=== PATIENT | male | born 1940 | race Caucasian/White ===

== ENCOUNTER 2018-01-31 18:12 | Inpatient (IN) | payer MEDICARE ==
[2018-01-31] MEDS ORDERED: ASPIRIN 81 MG PO STA (18:45)
[2018-01-31] MEDS ORDERED: NITROGLYCERIN OINT 1 INCH/GM PACKET TOPICAL STA (18:45)
--- NOTE | 2018-01-31 18:48 | ED ---
General Adult HPI - General Source: patient, family, RN notes reviewed Mode of arrival: wheelchair Limitations: no limitations <Chilo Cook - Last Filed: 01/31/18 18:46> <Paris Gibbs - Last Filed: 01/31/18 20:16> - General Chief complaint: Chest Pain Stated complaint: Chest Pain Time Seen by Provider: 01/31/18 18:38 - History of Present Illness Initial comments: Patient is a pleasant 77-year-old male presenting to the emergency Department with complaints of chest discomfort. Onset of symptoms was around 4 today. Patient did have discomfort that was somewhat severe. Discomfort described as an ache with some radiation up to the neck. Discomfort has improved and is mild at this time. No history of similar symptoms previously. Patient does have history of previous heart attack that he did not go to the hospital 4. No palpitations. No dyspnea. No nausea. No diaphoresis. (Chilo Cook) - Related Data Home Medications Medication Instructions Recorded Confirmed Aspirin 325 mg PO DAILY 11/01/13 11/04/13 Atorvastatin [Lipitor] 10 mg PO QAM 11/01/13 11/04/13 Folic Acid 800 mg PO DAILY 11/01/13 11/04/13 Ibuprofen [Motrin] 800 mg PO TID PRN 11/01/13 11/04/13 Lisinopril-Hctz 10-12.5 mg 1 each PO DAILY 11/01/13 11/04/13 [Zestoretic 10-12.5] amLODIPine [Norvasc] 5 mg PO DAILY 11/01/13 11/04/13 Allergies Allergy/AdvReac Type Severity Reaction Status Date / Time Penicillins Allergy Rash/Hives Verified 01/31/18 18:19 Review of Systems ROS Other: All systems not noted in ROS Statement are negative. Constitutional: Denies: fever Eyes: Denies: eye pain ENT: Denies: ear pain Respiratory: Denies: cough, dyspnea Cardiovascular: Reports: chest pain Endocrine: Denies: fatigue Gastrointestinal: Denies: abdominal pain Genitourinary: Denies: dysuria Musculoskeletal: Denies: back pain Skin: Denies: rash Neurological: Denies: weakness <Chilo Cook - Last Filed: 01/31/18 18:46> ROS Other: All systems not noted in ROS Statement are negative. <Paris Gibbs P - Last Filed: 01/31/18 20:16> ROS Statement: Those systems with pertinent positive or pertinent negative responses have been documented in the HPI. Past Medical History Past Medical History: COPD, CVA/TIA, Hyperlipidemia, Hypertension, Rheumatoid Arthritis (RA) Additional Past Medical History / Comment(s): SOB w/activity, having sleep study on 11-02-13 @[facility] for possible sleep apnea History of Any Multi-Drug Resistant Organisms: None Reported Past Surgical History: Orthopedic Surgery Additional Past Surgical History / Comment(s): carpal tunnel surg., eye surg. Past Anesthesia/Blood Transfusion Reactions: No Reported Reaction Past Psychological History: No Psychological Hx Reported Smoking Status: Former smoker Past Alcohol Use History: Occasional Past Drug Use History: None Reported <Chilo Cook Last Filed: 01/31/18 18:46> General Exam Limitations: no limitations General appearance: alert Head exam: Present: atraumatic Eye exam: Present: normal appearance, PERRL ENT exam: Present: normal oropharynx Neck exam: Present: normal inspection Respiratory exam: Present: normal lung sounds bilaterally. Absent: chest wall tenderness Cardiovascular Exam: Present: irregular rhythm Expanded Peripheral pulses: 2+: Radial (R), Radial (L), Dorsalis Pedis (R), Dorsalis Pedis (L) GI/Abdominal exam: Present: soft. Absent: tenderness Extremities exam: Present: normal inspection. Absent: pedal edema, calf tenderness Neurological exam: Present: alert Psychiatric exam: Present: normal affect, normal mood Skin exam: Present: normal color <Chilo Cook Last Filed: 01/31/18 18:46> Vital Signs 01/31/18 01/31/18 01/31/18 18:20 18:23 19:00 Temperature 98.2 F Pulse Rate 92 100 Respiratory 18 17 Rate Blood Pressure 168/105 154/105 O2 Sat by Pulse 94 L 98 Oximetry 01/31/18 01/31/18 01/31/18 19:42 19:51 19:54 Temperature Pulse Rate 98 102 H 99 Respiratory 20 18 20 Rate Blood Pressure 161/95 177/86 177/96 O2 Sat by Pulse 97 96 97 Oximetry EKG Findings - EKG Comments: EKG Findings:: A. fib with RVR, rate 110. QRS 90. QT 332. QTC 449. Normal axis. Normal QRS. Nonspecific ST-T. <Cook,Chilo - Last Filed: 01/31/18 18:46> Medical Decision Making <Chilo Cook - Last Filed: 01/31/18 18:46> - Lab Data Result diagrams: 01/31/18 18:37 01/31/18 18:37 <Paris Gibbs - Last Filed: 01/31/18 20:16> - Medical Decision Making She care was signed out to me by Dr. Cook, patient presented with chest pressure and new onset A. fib. Troponin was negative. Low-dose heparin was initiated. Patient's heart rate remained controlled on low dose of Cardizem. Results were discussed with the patient and patient was agreeable to plan for admission. Patient care was discussed with Dr. Selby who accepts admission with consult to Cardiology and Echo ordered. Orders placed. (Paris Gibbs) - Lab Data Lab Results 01/31/18 01/31/18 01/31/18 Range/Units 18:37 18:37 18:37 WBC 6.7 (3.8-10.6) k/uL RBC 4.63 (4.30-5.90) m/uL Hgb 14.8 (13.0-17.5) gm/dL Hct 45.4 (39.0-53.0) % MCV 97.9 (80.0-100.0) fL MCH 31.8 (25.0-35.0) pg MCHC 32.5 (31.0-37.0) g/dL RDW 14.2 (11.5-15.5) % Plt Count 196 (150-450) k/uL Neutrophils % 78 % Lymphocytes % 8 % Monocytes % 7 % Eosinophils % 4 % Basophils % 1 % Neutrophils # 5.2 (1.3-7.7) k/uL Lymphocytes # 0.6 L (1.0-4.8) k/uL Monocytes # 0.4 (0-1.0) k/uL Eosinophils # 0.2 (0-0.7) k/uL Basophils # 0.0 (0-0.2) k/uL PT (9.0-12.0) sec INR (<1.2) APTT (22.0-30.0) sec Sodium 140 (137-145) mmol/L Potassium 4.1 (3.5-5.1) mmol/L Chloride 108 H (98-107) mmol/L Carbon Dioxide 23 (22-30) mmol/L Anion Gap 9 mmol/L BUN 23 H (9-20) mg/dL Creatinine 0.89 (0.66-1.25) mg/dL Est GFR (CKD-EPI)AfAm >90 (>60 ml/min/1.73 sqM) Est GFR (CKD-EPI)NonAf 83 (>60 ml/min/1.73 sqM) Glucose 99 (74-99) mg/dL Calcium 9.1 (8.4-10.2) mg/dL Total Bilirubin 0.4 (0.2-1.3) mg/dL AST 39 (17-59) U/L ALT 36 (21-72) U/L Alkaline Phosphatase 64 (38-126) U/L Total Creatine Kinase 203 H (55-170) U/L CK-MB (CK-2) 2.7 H (0.0-2.4) ng/mL CK-MB (CK-2) Rel Index 1.3 Troponin I <0.012 (0.000-0.034) ng/mL Total Protein 7.3 (6.3-8.2) g/dL Albumin 4.0 (3.5-5.0) g/dL 01/31/18 Range/Units 18:37 WBC (3.8-10.6) k/uL RBC (4.30-5.90) m/uL Hgb (13.0-17.5) gm/dL Hct (39.0-53.0) % MCV (80.0-100.0) fL MCH (25.0-35.0) pg MCHC (31.0-37.0) g/dL RDW (11.5-15.5) % Plt Count (150-450) k/uL Neutrophils % % Lymphocytes % % Monocytes % % Eosinophils % % Basophils % % Neutrophils # (1.3-7.7) k/uL Lymphocytes # (1.0-4.8) k/uL Monocytes # (0-1.0) k/uL Eosinophils # (0-0.7) k/uL Basophils # (0-0.2) k/uL PT 10.3 (9.0-12.0) sec INR 1.1 (<1.2) APTT 21.5 L (22.0-30.0) sec Sodium (137-145) mmol/L Potassium (3.5-5.1) mmol/L Chloride (98-107) mmol/L Carbon Dioxide (22-30) mmol/L Anion Gap mmol/L BUN (9-20) mg/dL Creatinine (0.66-1.25) mg/dL Est GFR (CKD-EPI)AfAm (>60 ml/min/1.73 sqM) Est GFR (CKD-EPI)NonAf (>60 ml/min/1.73 sqM) Glucose (74-99) mg/dL Calcium (8.4-10.2) mg/dL Total Bilirubin (0.2-1.3) mg/dL AST (17-59) U/L ALT (21-72) U/L Alkaline Phosphatase (38-126) U/L Total Creatine Kinase (55-170) U/L CK-MB (CK-2) (0.0-2.4) ng/mL CK-MB (CK-2) Rel Index Troponin I (0.000-0.034) ng/mL Total Protein (6.3-8.2) g/dL Albumin (3.5-5.0) g/dL Disposition <Chilo Cook - Last Filed: 01/31/18 18:46> <Paris Gibbs - Last Filed: 01/31/18 20:16> Clinical Impression: Atrial fibrillation with RVR, Chest pain Disposition: ADMITTED IP TO THIS HOSP Condition: Stable Referrals: Paul Brower MD [Primary Care Provider] - 1-2 days
--- NOTE | 2018-01-31 18:54 | XR ---
EXAMINATION TYPE: XR chest 2V DATE OF EXAM: 01/31/2018 COMPARISON: 10/29/2013 HISTORY: Chest pain TECHNIQUE: Frontal and lateral views of the chest are obtained. FINDINGS: Heart and mediastinum are normal. Lungs are clear of consolidation. There is slight blunti ng of the right costophrenic angle. There is no heart failure. There is spurring in the thoracic spin e. There are small linear densities at the lung bases. IMPRESSION: Minimal scarring and subsegmental atelectasis at the lung bases. Minimal right pleural r eaction. No change.
[2018-01-31] MEDS: DILTIAZEM 50 MG in SODIUM CHLORIDE 0.9% 40 ML IV SCH (18:57)
[2018-01-31 18:58] LABS: Basophils % (A) 1 %; Eosinophils # (A) 0.2 k/uL (0-0.7); Eosinophils % (A) 4 %; HCT 45.4 % (39.0-53.0); HGB 14.8 gm/dL (13.0-17.5); Lymphocytes # (A) 0.6 k/uL (1.0-4.8); Lymphocytes % (A) 8 %; MCH 31.8 pg (25.0-35.0); MCHC 32.5 g/dL (31.0-37.0); MCV 97.9 fL (80.0-100.0); Mean Platelet Volume 6.7; Monocytes # (A) 0.4 k/uL (0-1.0); Monocytes % (A) 7 %; Neutrophils # (A) 5.2 k/uL (1.3-7.7); Neutrophils % (A) 78 %; Platelet Count 196 k/uL (150-450); RBC 4.63 m/uL (4.30-5.90); RDW 14.2 % (11.5-15.5); WBC 6.7 k/uL (3.8-10.6)
[2018-01-31 19:07] LABS: Creatine Kinase 203 U/L (55-170)
[2018-01-31 19:09] LABS: ALT 36 U/L (21-72); AST 39 U/L (17-59); Alkaline Phosphatase 64 U/L (38-126); Anion Gap 9 mmol/L; Blood Urea Nitrogen 23 mg/dL (9-20); Calcium 9.1 mg/dL (8.4-10.2); Carbon Dioxide 23 mmol/L (22-30); Chloride 108 mmol/L (98-107); Glucose 99 mg/dL (74-99); Potassium 4.1 mmol/L (3.5-5.1); Sodium 140 mmol/L (137-145); Total Bilirubin 0.4 mg/dL (0.2-1.3); Total Protein 7.3 g/dL (6.3-8.2)
[2018-01-31 19:19] LABS: Creatine Kinase MB 2.7 ng/mL (0.0-2.4); Troponin I <0.012 ng/mL (0.000-0.034)
[2018-01-31 19:44] LABS: INR 1.1 (<1.2)
[2018-01-31 19:45] LABS: Partial Thromboplastin Time 21.5 sec (22.0-30.0); Prothrombin Time 10.3 sec (9.0-12.0)
[2018-01-31] MEDS ORDERED: NITROGLYCERIN SL TABS 0.4 MG TAB SUBLINGUAL PRN (19:57)
[2018-01-31] MEDS ORDERED: HEPARIN SODIUM,PORCINE 5,000 UNIT/ML 1 ML VIAL IV ONE (19:59)
[2018-01-31] MEDS: HEPARIN SOD,PORK IN 0.45% NACL 25,000 UNIT in 0.45% NACL 1 500ML.BAG IV SCH (20:17)
[2018-01-31 22:10] VITALS: BMI 34.9
[2018-02-01 01:31] LABS: Basophils # (A) 0.1 k/uL (0-0.2); Basophils % (A) 1 %; Eosinophils # (A) 0.3 k/uL (0-0.7); Eosinophils % (A) 4 %; HGB 14.2 gm/dL (13.0-17.5); Lymphocytes # (A) 0.9 k/uL (1.0-4.8); Lymphocytes % (A) 15 %; MCH 32.6 pg (25.0-35.0); MCHC 33.1 g/dL (31.0-37.0); MCV 98.5 fL (80.0-100.0); Mean Platelet Volume 6.8; Monocytes # (A) 0.5 k/uL (0-1.0); Monocytes % (A) 8 %; Neutrophils % (A) 69 %; Platelet Count 174 k/uL (150-450); RBC 4.36 m/uL (4.30-5.90); WBC 5.8 k/uL (3.8-10.6)
[2018-02-01] MEDS: HEPARIN SODIUM,PORCINE 5,000 UNIT/ML 1 ML VIAL IV PRN (01:51)
[2018-02-01 01:53] LABS: Creatine Kinase MB 2.5 ng/mL (0.0-2.4); Troponin I 0.016 ng/mL (0.000-0.034)
[2018-02-01] MEDS: DILTIAZEM 50 MG in SODIUM CHLORIDE 0.9% 40 ML IV SCH (03:30)
[2018-02-01 07:52] LABS: Basophils % (A) 1 %; Eosinophils # (A) 0.3 k/uL (0-0.7); Eosinophils % (A) 4 %; HCT 43.7 % (39.0-53.0); HGB 14.2 gm/dL (13.0-17.5); Lymphocytes # (A) 0.9 k/uL (1.0-4.8); Lymphocytes % (A) 14 %; MCH 31.9 pg (25.0-35.0); MCHC 32.6 g/dL (31.0-37.0); Mean Platelet Volume 6.9; Monocytes # (A) 0.5 k/uL (0-1.0); Monocytes % (A) 8 %; Neutrophils # (A) 4.6 k/uL (1.3-7.7); Neutrophils % (A) 70 %; Platelet Count 176 k/uL (150-450); RBC 4.46 m/uL (4.30-5.90); WBC 6.6 k/uL (3.8-10.6)
[2018-02-01] MEDS: ATORVASTATIN 10 MG TAB PO SCH ×2 (07:53→07:56)
[2018-02-01 08:32] LABS: Creatine Kinase MB 3.4 ng/mL (0.0-2.4); Troponin I 0.023 ng/mL (0.000-0.034)
[2018-02-01 08:58] LABS: Cholesterol 193 mg/dL (<200); HDL Cholesterol 48 mg/dL (40-60); LDL Cholesterol,Calculated 132 mg/dL (0-99); Triglycerides 67 mg/dL (<150)
[2018-02-01] MEDS ORDERED: LISINOPRIL-HCTZ 10-12.5 MG 1 EACH TAB PO SCH (09:00)
[2018-02-01] MEDS ORDERED: amLODIPine 5 MG TAB PO SCH (09:00)
[2018-02-01] MEDS ORDERED: ASPIRIN 325 MG TAB PO SCH (09:00)
--- NOTE | 2018-02-01 10:29 | P.CRDCN ---
History of Present Illness History of present illness: This is Dr. León dictating a consult on this patient The patient was interviewed and examined by me IMPRESSION / ASSESSMENT: Patient admitted with chest discomfort lasting about an hour, continuous with normal cardiac enzymes that woke him up from sleep Newly diagnosed atrial fibrillation with RVR but denies palpitations or shortness of breath and resting comfortably in bed at this time supine History of hypertension on amlodipine and Zestoretic History of dyslipidemia on statins Normal TSH Past history of CVA and he did not seek medical attention at that time PLAN: Rate controlled atrial fibrillation with metoprolol. DC IV Cardizem today Continue IV heparin 2-D echo and Doppler study to assess cardiac structure and function Increase atorvastatin to 20 mg by mouth daily Lipid panel shows LDL of 1 32 mg/dL HPI 77 year old male patient who woke up in the middle of the night with chest discomfort. The pain radiated up into the neck and it lasted for about an hour or possibly more and hence he came to the hospital. Denied palpitations shortness of breath or any other associated symptoms 3 cardiac enzymes are normal but he was noted to be in atrial fibrillation which is a new diagnosis for him Several years back he had a stroke and last motor function in his upper extremity and this gradually resolved. He did not seek medical attention at that time Impression of Dr. Brower History of hypertension on Zestoretic 10/12.5 g by mouth daily as well as amlodipine 5 mg daily. Also takes atorvastatin 10 mg daily for dyslipidemia ROS: No fever chills or rigors, no cough, phlegm or expectoration, no nausea, vomiting or diarrhea, no hematuria, dysuria, no musculoskeletal complaints, no strokes or seizures, no skin lesions. EXAMINATION Rhythm is irregular. Breath sounds are normal no rhonchi no crackles Heart sounds S1 and S2 are irregular but normal no murmurs no gallops no rub Abdomen is soft nontender Extended is warm no edema Patient is lying supine in bed and looks comfortable Blood pressure 128/72 mmHg pulse rate in the 80s on IV Cardizem afebrile 96.7F normal respirations nonlabored REVIEW OF LABS, ECG Hemoglobin 14.2, alert lites normal, renal function normal, liver functions normal TSH 2.0 LDL 132, HDL 48, total cholesterol 193, triglycerides 67 Elevated CPK but normal troponins Twelve-lead ECG shows atrial fibrillation with RVR 110 beats a minute, newly diagnosed Past Medical History Past Medical History: COPD, CVA/TIA, Hyperlipidemia, Hypertension, Rheumatoid Arthritis (RA) Additional Past Medical History / Comment(s): SOB w/activity, having sleep study on 11-02-13 @ for possible sleep apnea History of Any Multi-Drug Resistant Organisms: None Reported Past Surgical History: Orthopedic Surgery Additional Past Surgical History / Comment(s): carpal tunnel surg., eye surg. Past Anesthesia/Blood Transfusion Reactions: No Reported Reaction Past Psychological History: No Psychological Hx Reported Smoking Status: Former smoker Past Alcohol Use History: Occasional Past Drug Use History: None Reported Medications and Allergies Home Medications Medication Instructions Recorded Confirmed Type Aspirin 325 mg PO DAILY 11/01/13 02/01/18 History Folic Acid 800 mg PO DAILY 11/01/13 02/01/18 History Ibuprofen [Motrin] 800 mg PO TID PRN 11/01/13 02/01/18 History amLODIPine [Norvasc] 5 mg PO DAILY 11/01/13 02/01/18 History Abatacept [Orencia] 125 mg SQ WEEKLY 02/01/18 02/01/18 History Latanoprost/Pf [Latanoprost 0.005% 1 drop BOTH EYES HS 02/01/18 02/01/18 History Eye Drop] Lutein 10 mg PO DAILY 02/01/18 02/01/18 History Methotrexate/Pf [Rasuvo 7.5 15 mg SQ WEEKLY 02/01/18 02/01/18 History mg/0.15 ml Autoinj] Allergies Allergy/AdvReac Type Severity Reaction Status Date / Time Penicillins Allergy Rash/Hives Verified 01/31/18 18:19 atorvastatin [From Lipitor] AdvReac Unknown Verified 02/01/18 09:19 Physical Exam Vitals: Vital Signs Temp Pulse Pulse Pulse Resp BP BP 02/01/18 08:00 18 02/01/18 07:58 96.7 F L 86 18 103/63 02/01/18 03:11 98.0 F 72 18 128/72 02/01/18 00:00 97.5 F L 96 18 132/68 01/31/18 20:31 97.1 F L 95 20 121/74 01/31/18 20:00 98 F 100 18 174/84 01/31/18 19:54 99 20 177/96 01/31/18 19:51 102 H 18 177/86 01/31/18 19:42 98 20 161/95 01/31/18 19:00 100 17 154/105 01/31/18 18:23 98.2 F 01/31/18 18:20 92 18 168/105 Pulse Ox 02/01/18 08:00 02/01/18 07:58 92 L 02/01/18 03:11 95 02/01/18 00:00 96 01/31/18 20:31 94 L 01/31/18 20:00 97 01/31/18 19:54 97 01/31/18 19:51 96 01/31/18 19:42 97 01/31/18 19:00 98 01/31/18 18:23 01/31/18 18:20 94 L Intake and Output 01/31/18 02/01/18 02/01/18 22:59 06:59 14:59 Intake Total 154.137 Balance 154.137 Intake: Intake, IV Titration 154.137 Amount Diltiazem 50 mg In Sodium 42.75 Chloride 0.9% 40 ml @ 5 MG/HR 5 mls/hr IV .Q10H [facility] Rx#:[id number] Heparin Sod,Pork in 0.45% 111.387 NaCl 25,000 unit In 0.45 % NaCl 1 500ml.bag @ 8.3 UNITS/KG/HR 19.95 mls/hr IV .Q24H [facility] Rx#: [id number] Other: Voiding Method Toilet Urinal # Voids 1 1 Weight 120.202 kg 116.1 kg Results 02/01/18 07:41 01/31/18 18:37 Cardiac Enzymes 01/31/18 01/31/18 02/01/18 Range/Units 18:37 18:37 01:15 AST 39 (17-59) U/L CK-MB (CK-2) 2.7 H 2.5 H (0.0-2.4) ng/mL Troponin I <0.012 0.016 (0.000-0.034) ng/mL 02/01/18 Range/Units 07:41 AST (17-59) U/L CK-MB (CK-2) 3.4 H (0.0-2.4) ng/mL Troponin I 0.023 (0.000-0.034) ng/mL Coagulation 01/31/18 02/01/18 02/01/18 Range/Units 18:37 01:15 07:41 PT 10.3 (9.0-12.0) sec APTT 21.5 L 31.8 H 60.0 H (22.0-30.0) sec Lipids 02/01/18 Range/Units 07:41 Triglycerides 67 (<150) mg/dL Cholesterol 193 (<200) mg/dL HDL Cholesterol 48 (40-60) mg/dL CBC 01/31/18 02/01/18 02/01/18 Range/Units 18:37 01:15 07:41 WBC 6.7 5.8 6.6 (3.8-10.6) k/uL RBC 4.63 4.36 4.46 (4.30-5.90) m/uL Hgb 14.8 14.2 14.2 (13.0-17.5) gm/dL Hct 45.4 43.0 43.7 (39.0-53.0) % Plt Count 196 174 176 (150-450) k/uL Comprehensive Metabolic Panel 01/31/18 Range/Units 18:37 Sodium 140 (137-145) mmol/L Potassium 4.1 (3.5-5.1) mmol/L Chloride 108 H (98-107) mmol/L Carbon Dioxide 23 (22-30) mmol/L BUN 23 H (9-20) mg/dL Creatinine 0.89 (0.66-1.25) mg/dL Glucose 99 (74-99) mg/dL Calcium 9.1 (8.4-10.2) mg/dL AST 39 (17-59) U/L ALT 36 (21-72) U/L Alkaline Phosphatase 64 (38-126) U/L Total Protein 7.3 (6.3-8.2) g/dL Albumin 4.0 (3.5-5.0) g/dL Current Medications Generic Name Dose Route Start Last Admin Trade Name Freq PRN Reason Stop Dose Admin Aspirin 81 mg 02/02/18 09:00 Aspirin PO DAILY [facility] Atorvastatin Calcium 20 mg 02/02/18 09:00 Lipitor PO QAM [facility] Lisinopril/HCTZ 1 each 02/01/18 09:00 02/01/18 07:53 Zestoretic 10-12.5 PO 1 each DAILY [facility] Administration Heparin Sodium (Porcine) 0 unit 01/31/18 19:59 02/01/18 01:51 Heparin IV 6,000 unit PER PROTOCOL PRN Administration Low PTT Protocol Heparin Sodium/Sodium Chloride 500 mls @ 19.95 mls/hr 01/31/18 20:00 01:52 25,000 unit/ Sodium Chloride IV 11.3 units/kg/hr .Q24H [facility] 27.16 mls/hr Titration Protocol 8.3 UNITS/KG/HR Metoprolol Tartrate 25 mg 02/01/18 10:30 Lopressor PO BID [facility] Nitroglycerin 0.4 mg 01/31/18 19:57 Nitrostat SUBLINGUAL Q5M PRN Chest Pain Intake and Output 01/31/18 02/01/18 02/01/18 22:59 06:59 14:59 Intake Total 154.137 Balance 154.137 Intake: Intake, IV Titration 154.137 Amount Diltiazem 50 mg In Sodium 42.75 Chloride 0.9% 40 ml @ 5 MG/HR 5 mls/hr IV .Q10H [facility] Rx#:[id number] Heparin Sod,Pork in 0.45% 111.387 NaCl 25,000 unit In 0.45 % NaCl 1 500ml.bag @ 8.3 UNITS/KG/HR 19.95 mls/hr IV .Q24H [facility] Rx#: [id number] Other: Voiding Method Toilet Urinal # Voids 1 1 Weight 120.202 kg 116.1 kg 02/01/18 07:41 01/31/18 18:37
[2018-02-01] MEDS: METOPROLOL TARTRATE 25 MG TAB PO SCH ×2 (10:56→21:02)
--- NOTE | 2018-02-01 12:41 | P.HPIM ---
History of Present Illness 77-year-old pleasant gentleman came in with compensative chest discomfort restarted yesterday across the chest radiating to the neck area. Constant moderate. Patient denied any fever chills diaphoresis patient's chest pain is nonpleuritic not associated with food. Patient is found to be in atrial fibrillation patient and dysuria cough runny nose abdominal pain diarrhea patient does not have any other signs or symptoms of sepsis at this time. Patient was initially on Cardizem which was switched to metoprolol patient had a cardiac cath that 6 years ago which was essentially within normal limits. Chest x-ray did not show any pulmonary edema. Chest pain is associated with shortness of breath, no palpitations Review of Systems REVIEW OF SYSTEMS: CONSTITUTIONAL: No fever, no malaise, no fatigue. HEENT: No recent visual problems or hearing problems. Denied any sore throat. CARDIOVASCULAR: no palpitations, no syncope. PULMONARY: no cough, no hemoptysis. GASTROINTESTINAL: No diarrhea, no nausea, no vomiting, no abdominal pain. Normoactive bowel sounds. NEUROLOGICAL: No headaches, no weakness, no numbness. HEMATOLOGICAL: Denies any bleeding or petechiae. GENITOURINARY: Denies any burning micturition, frequency, or urgency. MUSCULOSKELETAL/RHEUMATOLOGICAL: Denies any joint pain, swelling, or any muscle pain. ENDOCRINE: Denies any polyuria or polydipsia. The rest of the 14-point review of systems is negative. Past Medical History Past Medical History: COPD, CVA/TIA, Hyperlipidemia, Hypertension, Rheumatoid Arthritis (RA) Additional Past Medical History / Comment(s): SOB w/activity, having sleep study on 11-02-13 @[facility] for possible sleep apnea History of Any Multi-Drug Resistant Organisms: None Reported Past Surgical History: Orthopedic Surgery Additional Past Surgical History / Comment(s): carpal tunnel surg., eye surg. Past Anesthesia/Blood Transfusion Reactions: No Reported Reaction Past Psychological History: No Psychological Hx Reported Smoking Status: Former smoker Past Alcohol Use History: Occasional Past Drug Use History: None Reported Medications and Allergies Home Medications Medication Instructions Recorded Confirmed Type Aspirin 325 mg PO DAILY 11/01/13 02/01/18 History Folic Acid 800 mg PO DAILY 11/01/13 02/01/18 History Ibuprofen [Motrin] 800 mg PO TID PRN 11/01/13 02/01/18 History amLODIPine [Norvasc] 5 mg PO DAILY 11/01/13 02/01/18 History Latanoprost/Pf [Latanoprost 0.005% 1 drop BOTH EYES HS 02/01/18 02/01/18 History Eye Drop] Lutein 10 mg PO DAILY 02/01/18 02/01/18 History Methotrexate/Pf [Rasuvo 7.5 15 mg SQ WE 02/01/18 02/01/18 History mg/0.15 ml Autoinj] predniSONE 5 mg PO DAILY 02/01/18 02/01/18 History Allergies Allergy/AdvReac Type Severity Reaction Status Date / Time Penicillins Allergy Rash/Hives Verified 01/31/18 18:19 atorvastatin [From Lipitor] AdvReac Unknown Verified 02/01/18 09:19 Physical Exam Vitals: Vital Signs Temp Pulse Pulse Pulse Resp BP BP 02/01/18 11:56 18 02/01/18 11:03 94 F L 80 18 127/68 02/01/18 08:00 18 02/01/18 07:58 96.7 F L 86 18 103/63 02/01/18 03:11 98.0 F 72 18 128/72 02/01/18 00:00 97.5 F L 96 18 132/68 01/31/18 20:31 97.1 F L 95 20 121/74 01/31/18 20:00 98 F 100 18 174/84 01/31/18 19:54 99 20 177/96 01/31/18 19:51 102 H 18 177/86 01/31/18 19:42 98 20 161/95 01/31/18 19:00 100 17 154/105 01/31/18 18:23 98.2 F 01/31/18 18:20 92 18 168/105 Pulse Ox 02/01/18 11:56 02/01/18 11:03 93 L 02/01/18 08:00 02/01/18 07:58 92 L 02/01/18 03:11 95 02/01/18 00:00 96 01/31/18 20:31 94 L 01/31/18 20:00 97 01/31/18 19:54 97 01/31/18 19:51 96 01/31/18 19:42 97 01/31/18 19:00 98 01/31/18 18:23 01/31/18 18:20 94 L Intake and Output 01/31/18 02/01/18 02/01/18 22:59 06:59 14:59 Intake Total 154.137 Balance 154.137 Intake: Intake, IV Titration 154.137 Amount Diltiazem 50 mg In Sodium 42.75 Chloride 0.9% 40 ml @ 5 MG/HR 5 mls/hr IV .Q10H [facility] Rx#:[id number] Heparin Sod,Pork in 0.45% 111.387 NaCl 25,000 unit In 0.45 % NaCl 1 500ml.bag @ 8.3 UNITS/KG/HR 19.95 mls/hr IV .Q24H [facility] Rx#: [id number] Other: Voiding Method Toilet Urinal # Voids 1 1 Weight 120.202 kg 116.1 kg PHYSICAL EXAMINATION: GENERAL: The patient is alert and oriented x3, not in any acute distress. Well developed, well nourished. HEENT: Pupils are round and equally reacting to light. EOMI. No scleral icterus. No conjunctival pallor. Normocephalic, atraumatic. No pharyngeal erythema. No thyromegaly. CARDIOVASCULAR: S1 and S2 present. No murmurs, rubs, or gallops. PULMONARY: Chest is clear to auscultation, no wheezing or crackles. ABDOMEN: Soft, nontender, nondistended, normoactive bowel sounds. No palpable organomegaly. MUSCULOSKELETAL: No joint swelling or deformity. EXTREMITIES: No cyanosis, clubbing, or pedal edema. NEUROLOGICAL: Gross neurological examination did not reveal any focal deficits. SKIN: No rashes. Results CBC & Chem 7: 02/01/18 07:41 01/31/18 18:37 Labs: Abnormal Lab Results - Last 24 Hours (Table) 01/31/18 01/31/18 01/31/18 Range/Units 18:37 18:37 18:37 Lymphocytes # 0.6 L (1.0-4.8) k/uL APTT (22.0-30.0) sec Chloride 108 H (98-107) mmol/L BUN 23 H (9-20) mg/dL Total Creatine Kinase 203 H (55-170) U/L CK-MB (CK-2) 2.7 H (0.0-2.4) ng/mL LDL Cholesterol, Calc (0-99) mg/dL 01/31/18 02/01/18 02/01/18 Range/Units 18:37 01:15 01:15 Lymphocytes # 0.9 L (1.0-4.8) k/uL APTT 21.5 L (22.0-30.0) sec Chloride (98-107) mmol/L BUN (9-20) mg/dL Total Creatine Kinase (55-170) U/L CK-MB (CK-2) 2.5 H (0.0-2.4) ng/mL LDL Cholesterol, Calc (0-99) mg/dL 02/01/18 02/01/18 02/01/18 Range/Units 01:15 07:41 07:41 Lymphocytes # 0.9 L (1.0-4.8) k/uL APTT 31.8 H (22.0-30.0) sec Chloride (98-107) mmol/L BUN (9-20) mg/dL Total Creatine Kinase 177 H (55-170) U/L CK-MB (CK-2) 3.4 H (0.0-2.4) ng/mL LDL Cholesterol, Calc (0-99) mg/dL 02/01/18 02/01/18 Range/Units 07:41 07:41 Lymphocytes # (1.0-4.8) k/uL APTT 60.0 H (22.0-30.0) sec Chloride (98-107) mmol/L BUN (9-20) mg/dL Total Creatine Kinase (55-170) U/L CK-MB (CK-2) (0.0-2.4) ng/mL LDL Cholesterol, Calc 132 H (0-99) mg/dL Thrombosis Risk Factor Assmnt - Choose All That Apply Any of the Below Risk Factors Present?: Yes Each Factor Represents 1 point: Obesity (BMI >25) Other Risk Factors: Yes Each Risk Factor Represents 3 Points: Age 75 years or older Thrombosis Risk Factor Assessment Total Risk Factor Score: 4 Thrombosis Risk Factor Assessment Level: Moderate Risk Assessment and Plan Plan: -New-onset atrial fibrillation: Patient is on anticoagulation with heparin will need to be switched to oral patient was started on metoprolol. Patient had a history of bradycardia at 20 years ago. -Chest pain: Probably secondary to atrial fibrillation cardiac enzymes are essentially within normal limits. -Hypertension continue with amlodipine -Rheumatoid arthritis -dyslipidemia -History of CVA in the past
[2018-02-01] MEDS: HEPARIN SOD,PORK IN 0.45% NACL 25,000 UNIT in 0.45% NACL 1 500ML.BAG IV SCH (17:24)
[2018-02-01 18:26] LABS: Glucose,Whole Blood 105 mg/dL (75-99)
[2018-02-01 18:29] LABS: Appearance,Urine Clear (Clear); Bilirubin,Urine Negative (Negative); Blood,Urine Small (Negative); Color,Urine Yellow; Glucose,Urine (UA) Negative (Negative); Ketones,Urine Negative (Negative); Leukocyte Esterase,Urine Negative (Negative); Mucus,Urine Rare /hpf; Nitrite,Urine Negative (Negative); PH, Urine 5.5 (5.0-8.0); Protein,Urine Negative (Negative); RBC,Urine 5 /hpf (0-5); Specific Gravity,Urine 1.013 (1.001-1.035); Urobilinogen,Urine <2.0 mg/dL (<2.0); WBC,Urine 1 /hpf (0-5)
[2018-02-01] MEDS ORDERED: LATANOPROST 0.005% OPHTH DROPS 2.5 ML BTL BOTH EYES SCH (21:00)
[2018-02-01 21:04] LABS: Glucose,Whole Blood 91 mg/dL (75-99)
[2018-02-02 06:36] LABS: Basophils % (A) 1 %; Eosinophils # (A) 0.3 k/uL (0-0.7); Eosinophils % (A) 4 %; HCT 45.7 % (39.0-53.0); HGB 14.5 gm/dL (13.0-17.5); Lymphocytes % (A) 17 %; MCHC 31.8 g/dL (31.0-37.0); MCV 100.7 fL (80.0-100.0); Macrocytosis Slight; Mean Platelet Volume 6.5; Monocytes # (A) 0.4 k/uL (0-1.0); Monocytes % (A) 8 %; Neutrophils # (A) 3.9 k/uL (1.3-7.7); Neutrophils % (A) 67 %; Platelet Count 180 k/uL (150-450); RBC 4.54 m/uL (4.30-5.90); RDW 14.4 % (11.5-15.5); WBC 5.8 k/uL (3.8-10.6)
[2018-02-02 06:42] LABS: Calcium 8.6 mg/dL (8.4-10.2); Potassium 4.1 mmol/L (3.5-5.1)
[2018-02-02] MEDS: HEPARIN SODIUM,PORCINE 5,000 UNIT/ML 1 ML VIAL IV PRN (06:50)
[2018-02-02] MEDS: METOPROLOL TARTRATE 25 MG TAB PO SCH (08:45)
[2018-02-02] MEDS ORDERED: ATORVASTATIN 20 MG TAB PO SCH (09:00)
[2018-02-02] MEDS ORDERED: ASPIRIN 81 MG PO SCH (09:00)
[2018-02-02] MEDS ORDERED: NON-FORMULARY DRUG (Lutein [Lutein] 10 MG) PO SCH (09:00)
[2018-02-02 09:30] VITALS: RESP 17; TEMP 97.4
[2018-02-02] MEDS ORDERED: APIXABAN 5 MG TAB PO SCH (11:30)
--- NOTE | 2018-02-02 11:53 | P.DS ---
Providers Date of admission: 01/31/18 20:00 Attending physician: Hesham Selby Consults: 01/31/18 19:57 Consult Physician Urgent Consulting Provider: [facility] Consult Reason/Comments: new afib Do you want consulting provider notified?: Yes, Notify in am [facility] Course: 77-year-old gentleman was admitted with new-onset atrial fibrillation. Patient is presently sinus rhythm patient was started on beta vinicius and anticoagulation with Eliquis patient will be discharged today in stable medical condition to home. Patient is feeling much better today. PHYSICAL EXAMINATION: GENERAL: The patient is alert and oriented x3, not in any acute distress. Well developed, well nourished. HEENT: Pupils are round and equally reacting to light. EOMI. No scleral icterus. No conjunctival pallor. Normocephalic, atraumatic. No pharyngeal erythema. No thyromegaly. CARDIOVASCULAR: S1 and S2 present. No murmurs, rubs, or gallops. PULMONARY: Chest is clear to auscultation, no wheezing or crackles. ABDOMEN: Soft, nontender, nondistended, normoactive bowel sounds. No palpable organomegaly. MUSCULOSKELETAL: No joint swelling or deformity. EXTREMITIES: No cyanosis, clubbing, or pedal edema. NEUROLOGICAL: Gross neurological examination did not reveal any focal deficits. SKIN: No rashes. Assessment and Plan Plan: -New-onset atrial fibrillation: Patient is on anticoagulation. will need to be switched to oral patient was started on metoprolol. -Chest pain: Probably secondary to atrial fibrillation cardiac enzymes are essentially within normal limits. -Hypertension continue with amlodipine -Rheumatoid arthritis -dyslipidemia -History of CVA in the past Patient Condition at Discharge: Stable Plan - Discharge Summary Discharge Rx Participant: Yes New Discharge Prescriptions: New Apixaban [Eliquis] 5 mg PO BID #60 tab Atorvastatin [Lipitor] 20 mg PO QAM #30 tab Metoprolol Tartrate [Lopressor] 25 mg PO BID #60 tab Continue Ibuprofen [Motrin] 800 mg PO TID PRN PRN Reason: Pain Folic Acid 800 mg PO DAILY amLODIPine [Norvasc] 5 mg PO DAILY Aspirin 325 mg PO DAILY Methotrexate/Pf [Rasuvo 7.5 mg/0.15 ml Autoinj] 15 mg SQ WE Lutein 10 mg PO DAILY Latanoprost/Pf [Latanoprost 0.005% Eye Drop] 1 drop BOTH EYES HS predniSONE 5 mg PO DAILY Discharge Medication List Aspirin 325 mg PO DAILY 11/01/13 [History] Folic Acid 800 mg PO DAILY 11/01/13 [History] Ibuprofen [Motrin] 800 mg PO TID PRN 11/01/13 [History] amLODIPine [Norvasc] 5 mg PO DAILY 11/01/13 [History] Latanoprost/Pf [Latanoprost 0.005% Eye Drop] 1 drop BOTH EYES HS 02/01/18 [ History] Lutein 10 mg PO DAILY 02/01/18 [History] Methotrexate/Pf [Rasuvo 7.5 mg/0.15 ml Autoinj] 15 mg SQ WE 02/01/18 [History] predniSONE 5 mg PO DAILY 02/01/18 [History] Apixaban [Eliquis] 5 mg PO BID #60 tab 02/02/18 [Rx] Atorvastatin [Lipitor] 20 mg PO QAM #30 tab 02/02/18 [Rx] Metoprolol Tartrate [Lopressor] 25 mg PO BID #60 tab 02/02/18 [Rx] Follow up Appointment(s)/Referral(s): Sherman Cartagena MD [STAFF PHYSICIAN] - 2 Weeks (Office will call with follow up appointment.) Paul Brower MD [Primary Care Provider] - 02/10/18 9:30 am (Follow-up with Dr. Mix/Kianna Ramirez- previous field administrative assistant is Dr. Cartagena, verified by office.) Patient Instructions/Handouts: A-fib (Atrial Fibrillation) (DC), Safe Use of Anticoagulants (DC) Activity/Diet/Wound Care/Special Instructions: pt monthly copay for Eliquis is $43.50
[2018-02-02 11:55] VITALS: BP 133/76; PULSE 54
--- NOTE | 2018-02-02 13:45 | P.PN ---
Subjective Progress Note Date: 02/02/18 This is a 77-year-old gentleman who was seen in consultation yesterday by Dr. León. Presented to the hospital with symptoms of newly diagnosed age of fibrillation with rapid ventricular response. He also has a known history of hypertension, hyperlipidemia, and prior CVA. Patient was seen and examined today, doing well overall. In normal sinus rhythm with a heart rate in the 60s today. We will discontinue his heparin and start the patient today on Eliquis 5 mg one tablet by mouth twice a day, we did check to make sure the patient has coverage, he will cost him $43 a month and he is willing to be on that. Hemodynamically he is stable today. Objective - Vital Signs Vital signs: Vital Signs Temp 97.4 F L 02/02/18 07:35 Pulse 54 L 02/02/18 11:44 Resp 17 02/02/18 11:44 BP 133/76 02/02/18 11:44 Pulse Ox 96 02/02/18 11:44 Intake & Output 02/01/18 02/02/18 02/02/18 18:59 06:59 18:59 Intake Total 868.613 363.491 240 Output Total 950 Balance 868.613 -586.509 240 Weight 112.2 kg Intake: Intake, IV Titration 388.613 363.491 Amount Heparin Sod,Pork in 0.45% 388.613 363.491 NaCl 25,000 unit In 0.45 % NaCl 1 500ml.bag @ 8.3 UNITS/KG/HR 19.95 mls/hr IV .Q24H [facility] Rx#: [id number] Oral 480 240 Output: Urine 950 Other: Voiding Method Toilet Toilet Urinal Urinal # Voids 3 1 - Exam PHYSICAL EXAMINATION: GENERAL: 77-year-old gentleman in no acute distress at the time of my examination HEENT: Head is atraumatic, normocephalic. Pupils equal, round. Sclera anicteric. Conjunctiva are clear. Mucous membranes of the mouth are moist. Neck is supple. There is no elevated jugular venous pressure.] bruit is heard. HEART EXAMINATION: Heart S1, S2 normal. No murmur or gallop heard. CHEST EXAMINATION: Lungs are clear to auscultation and precussion. No chest wall tenderness is noted on palpation or with deep breathing. ABDOMEN: Soft, nontender. Bowel sounds are heard. No organomegaly noted. EXTREMITIES: 2+ peripheral pulses with no evidence of peripheral edema and no calf tenderness noted. NEUROLOGIC patient is awake, alert and oriented ?-3. . - Labs CBC & Chem 7: 02/02/18 06:02 02/02/18 06:02 Labs: Abnormal Lab Results - Last 24 Hours (Table) 02/01/18 02/01/18 02/02/18 Range/Units 18:05 18:06 06:02 MCV 100.7 H (80.0-100.0) fL APTT (22.0-30.0) sec BUN (9-20) mg/dL POC Glucose (mg/dL) 105 H (75-99) mg/dL Urine Blood Small H (Negative) Urine Mucus Rare H (None) /hpf 02/02/18 02/02/18 Range/Units 06:02 06:02 MCV (80.0-100.0) fL APTT 35.6 H (22.0-30.0) sec BUN 23 H (9-20) mg/dL POC Glucose (mg/dL) (75-99) mg/dL Urine Blood (Negative) Urine Mucus (None) /hpf Assessment and Plan Plan: Assessment and plan #1 paroxysmal atrial fibrillation, Eliquis has been initiated today for anticoagulation. #2 hypertension #3 hyperlipidemia #4 history of CVA Plan Discontinue the IV heparin today and start the patient on Eliquis milligrams one tablet by mouth twice a day. Patient may be able to be discharged home. We 'll make him a follow-up appointment in the office to see Dr. León in 3 weeks. DNP note has been reviewed, I agree with a documented findings and plan of care. Patient was seen and examined.
--- NOTE | 2018-02-02 14:26 | ECHOF ---
Referral Reason:chest pain MEASUREMENTS -------- HEIGHT: 180.3 cm WEIGHT: 112.0 kg BP: 150/75 RVIDd: 3.4 cm (< 3.3) IVSd: 1.1 cm (0.6 - 1.1) LVIDd: 4.7 cm (3.9 - 5.3) LVPWd: 1.2 cm (0.6 - 1.1) IVSs: 1.8 cm LVIDs: 2.9 cm LVPWs: 1.5 cm Ao Diam: 3.8 cm (2.0 - 3.7) AV Cusp: 2.0 cm (1.5 - 2.6) LA Diam: 3.6 cm (2.7 - 3.8) MV EXCURSION: 14.447 mm (> 18.000) MV EF SLOPE: 79 mm/s (70 - 150) EPSS: 0.5 cm MV E Noah: 0.68 m/s MV DecT: 275 ms MV A Noah: 0.69 m/s MV E/A Ratio: 0.98 FINDINGS -------- Sinus rhythm. This was a technically difficult study with suboptimal views. The left ventricular size is normal. Left ventricular wall thickness is normal. Overall left vent ricular systolic function is normal with, an EF between 55 - 60 %. The right ventricle is mildly enlarged. The left atrial size is normal. The right atrium is normal in size. Lumason used The aortic valve is trileaflet and appears structurally normal. There is trace mitral regurgitation. Trace tricuspid regurgitation present. The right ventricular systolic pressure, as measured by Dopp ler, is {RVSP}. Pulmonic valve appears structurally normal. The aortic root size is normal. Normal inferior vena cava with normal inspiratory collapse consistent with estimated right atrial pre ssure of 5 mmHg. The pericardium is normal. CONCLUSIONS -------- 1. Sinus rhythm. 2. This was a technically difficult study with suboptimal views. 3. The left ventricular size is normal. 4. Left ventricular wall thickness is normal. 5. Overall left ventricular systolic function is normal with, an EF between 55 - 60 %. 6. The left atrial size is normal. 7. The right atrium is normal in size. 8. Lumason used 9. The aortic valve is trileaflet and appears structurally normal. 10. There is trace mitral regurgitation. 11. Trace tricuspid regurgitation present. 12. The right ventricular systolic pressure, as measured by Doppler, is {RVSP}. 13. Pulmonic valve appears structurally normal. 14. The aortic root size is normal. 15. Normal inferior vena cava with normal inspiratory collapse consistent with estimated right atrial pressure of 5 mmHg. 16. The pericardium is normal. SHEEP FARM WORKER: Helena Calixto RDCS
[2018-02-08] MEDS ORDERED: ABATACEPT 125 MG SQ SCH (09:00)
[2018-02-08] MEDS ORDERED: METHOTREXATE 15 MG SQ SCH (09:00)
== END 2018-02-02 12:52 | disposition home or self-care (01) | DRG 310 ==
LOC: EC 18:12 → 6SEL 20:00
PROVIDERS: ADMIT Internal Medicine; ATTEND Internal Medicine
DX: I48.0 Paroxysmal atrial fibrillation (principal); E78.5 Hyperlipidemia, unspecified; I10 Essential (primary) hypertension; I25.2 Old myocardial infarction; J44.9 Chronic obstructive pulmonary disease, unspecified; M06.9 Rheumatoid arthritis, unspecified; Z79.01 Long term (current) use of anticoagulants; Z79.82 Long term (current) use of aspirin; Z86.73 Personal history of transient ischemic attack (TIA), and cerebral infarction without residual deficits; Z87.891 Personal history of nicotine dependence; Z79.1 Long term (current) use of non-steroidal anti-inflammatories (NSAID); Z79.899 Other long term (current) drug therapy; Z88.0 Allergy status to penicillin; Z88.8 Allergy status to other drugs, medicaments and biological substances
CPT/HCPCS: 36415; 71046; 80048; 80053; 80061; 81001; 82550; 82553; 84443; 84484; 85025; 85610; 85730; 93005; 93306; 96365; 96366; 96368; 96376; 99285

== ENCOUNTER 2018-04-27 05:53 | Day surgery (SDC) | payer MEDICARE ==
[2018-04-24 09:18] VITALS: BMI 33.2
[2018-04-27] MEDS ORDERED: ASPIRIN 325 MG TAB PO ONE (06:30)
[2018-04-27] MEDS ORDERED: ALPRAZolam 0.25 MG TAB PO PRN (06:30)
[2018-04-27] MEDS ORDERED: SODIUM CHLORIDE 0.9% 1,000 ML in EMPTY BAG 1 BAG IV ONE (06:30)
[2018-04-27] MEDS ORDERED: fentaNYL (PF) 50 MCG/ML 2 ML AMP ONE (07:11)
[2018-04-27] MEDS ORDERED: VERAPAMIL 2.5 MG/ML 2 ML AMP ONE (07:11)
[2018-04-27] MEDS ORDERED: LIDOCAINE 1% INJ 10MG/ML (20 ML MDV) ONE (07:11)
[2018-04-27] MEDS ORDERED: HEPARIN SODIUM 1,000 UN/ML (10ML VL) ONE ×2 (07:11→09:03)
[2018-04-27] MEDS ORDERED: fentaNYL (PF) 50 MCG/ML 2 ML AMP IV ONE (07:59)
[2018-04-27] MEDS ORDERED: LIDOCAINE 1% INJ 10MG/ML (20 ML MDV) SQ ONE (08:03)
[2018-04-27] MEDS ORDERED: VERAPAMIL SYRINGE (5 MG/10 ML) INTRAARTER ONE (08:04)
[2018-04-27] MEDS: HEPARIN SODIUM 1,000 UN/ML (10ML VL) IV ONE ×2 (08:13→08:20)
[2018-04-27] MEDS ORDERED: CLOPIDOGREL 75 MG TAB ONE (08:19)
[2018-04-27] MEDS ORDERED: CLOPIDOGREL 75 MG TAB PO ONE (08:22)
[2018-04-27] MEDS ORDERED: IOPAMIDOL-370 125ML BTL INJ ONE (08:28)
[2018-04-27] MEDS ORDERED: MIDAZOLAM 2 MG/2 ML VIAL IV ONE (08:32)
[2018-04-27] MEDS ORDERED: MORPHINE SULFATE 4 MG/ML SYRINGE ONE (08:41)
[2018-04-27] MEDS ORDERED: MORPHINE SULFATE 4 MG/ML SYRINGE IV ONE (08:43)
[2018-04-27] MEDS ORDERED: NITROGLYCERIN 1000MCG/10ML SYRINGE INTRACORON ONE (08:53)
[2018-04-27] MEDS ORDERED: IOPAMIDOL-370 100ML BTL INJ ONE ×2 (08:58→08:59)
[2018-04-27] MEDS ORDERED: HEPARIN SODIUM 1,000 UN/ML (10ML VL) IV ONE (09:05)
[2018-04-27] MEDS ORDERED: NITROGLYCERIN SL TABS 0.4 MG TAB SUBLINGUAL PRN (09:16)
[2018-04-27] MEDS ORDERED: ATROPINE SULFATE 0.1 MG/ML 10ML SYRINGE IV PRN (09:16)
[2018-04-27] MEDS ORDERED: RX INFO: IV CONTRAST WAS GIVEN 1 EACH MISC MISCELLANE PRN (09:16)
[2018-04-27] MEDS ORDERED: MAG HYDROX/AL HYDROX/SIMETH 30 ML CUP PO PRN (09:16)
[2018-04-27] MEDS ORDERED: ZOLPIDEM 5 MG TAB PO PRN (09:16)
[2018-04-27] MEDS ORDERED: SODIUM CHLORIDE 0.9% 1,000 ML IV SCH (09:30)
--- NOTE | 2018-04-27 10:36 | CC ---
CARDIAC CATHETERIZATION REPORT Mr. Santana is a 78-year-old male known history of hypertension, hyperlipidemia, paroxysmal fibrillation followed by Dr. León who has been complaining of progressive dyspnea and chest heaviness, underwent a myocardial perfusion imaging that was abnormal. In view of that, recommendation made regarding cardiac catheterization. The procedure, as well as risks and complications were discussed with the patient who is in full understanding and agreement. PROCEDURE: Patient was brought to laborer sawmill in a fasting state after receiving fentanyl and Benadryl and achieving moderate conscious sedated state. Using Xylocaine anesthesia and Seldinger technique, a 6-Ukrainian sheath was introduced in the right radial artery. Selective right and left coronary angiography performed using 5-Ukrainian 3 and half bend right Nisha and a 4 bend left Nisha catheter. Images of the coronary artery including hemiaxial views obtained. Following that angioplasty and stenting was performed. Following that 5-Ukrainian tight pigtail catheter in his left ventricle and pressures were calculated. Following that the catheter and sheaths were removed. Hemostasis was obtained with deployment of a TR band. There was no immediate complication. Patient is returned to his room in stable condition. FINDINGS: FLUOROSCOPY: There was calcification involving the proximal left anterior descending artery. 1. Left main: This is a short size vessel bifurcating left circumflex, left anterior descending artery left main coronary artery has no evidence of high-grade stenosis. 2. Left anterior descending coronary artery: This is a large-sized vessel reaching to the apex with a wraparound apex segment giving rise to a diagonal branch proximally. The left anterior descending artery proximally is tortuous, has an acute takeoff out of the left main and has a 95% stenosis in the proximal segment. The rest of the vessel has no high-grade stenosis. 3. Left circumflex: This is a nondominant vessel giving rise to a large obtuse marginal branch. The left circumflex as well as branches have no evidence of obstructive coronary disease. 4. RIGHT CORONARY ARTERY: This is a dominant vessel moderate in caliber bifurcating distally to the PDA and posterolateral segment and branches. The right coronary artery as well as branches have no evidence of obstructive disease. 5. Left ventriculogram: Left ventriculogram was not performed. 6. Hemodynamics: There was no gradient across the aortic valve. The left ventricle end-diastolic pressure was 12 mmHg. CONCLUSION: 1. 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 2. No evidence of obstructive disease in the left circumflex and the right coronary artery. RECOMMENDATION: In view of findings and anatomy, recommend proceeding with angioplasty and stenting. The procedure, risks and complications were discussed with the patient who is in full understanding and agreement. GEETHA / CHERYLN: [id number] /
--- NOTE | 2018-04-27 10:42 | PTCA ---
PERCUTANEOUSTRANS CORORONARY ANGIOGRAPHY Mr. Santana is a 78-year-old male who presented with symptoms of chest discomfort and had an abnormal myocardial perfusion imaging. Underwent cardiac catheterization that revealed critical stenosis involving the proximal calcified LAD. In view of that, recommendation made regarding angioplasty and stenting. The procedures as well as risks and complications were discussed with the patient who is in full understanding and agreement. PROCEDURE: A 6-Congolese EBU 3.75 guiding catheter was introduced into the system. After cannulating the left main, a 0.014 balanced medium weight J-wire was advanced across the LAD, positioned in the diagonal branch. There was difficulty advancing the wire into the LAD because of the severe tortuosity. Following that, an attempt to advance a whisper J-wire in the LAD were unsuccessful. Subsequently a 2.5 x 12 mm Trek balloon was advanced and inflations at 8 atmospheres was done. Following that, the balloon was removed and a 3.0 x 15 mm Xience Gretchen stent was deployed. It was dilated to 16 atmospheres. After the last inflation, after appropriate wait, the balloon and the guidewire were withdrawn back in the guiding catheter. Images were obtained repeated. Those images reveal stable successful stenting. At that point, the guiding catheter, the balloon and the guidewire were removed and a 6-Congolese tight pigtail catheter was introduced in the left ventricle and pressures were calculated. Following that the catheter and sheaths were removed. Hemostasis was obtained with deployment of a TR band. There was no immediate complication. Patient is returned to his room in stable condition. Of note, the patient had chest discomfort and EKG changes with the inflation that resolved at the end of the procedure. He received 12,000 units of intravenous heparin as well as intra-arterial verapamil and a loading dose of clopidogrel. RESULTS: Successful stenting of the proximal LAD with reduction of stenosis from 95% to 0%. RECOMMENDATION: Patient be continued on aspirin, Plavix, beta vinicius, and statin. The importance of dual antiplatelet treatment was discussed with the patient and his family who are in full understanding and agreement. MMAMAYAL / IJN: [id number] /
[2018-04-27] MEDS: SULFAMETHOX-TMP 800-160MG 1 EACH TAB PO SCH (20:18)
[2018-04-27] MEDS: METOPROLOL TARTRATE 25 MG TAB PO SCH (20:18)
[2018-04-27] MEDS ORDERED: LATANOPROST 0.005% OPHTH DROPS 2.5 ML BTL BOTH EYES SCH (21:00)
[2018-04-27] MEDS ORDERED: ATORVASTATIN 80 MG TAB PO SCH ×2 (21:00→22:30)
[2018-04-28 04:45] VITALS: RESP 19
[2018-04-28] MEDS: METOPROLOL TARTRATE 25 MG TAB PO SCH (07:47)
[2018-04-28] MEDS: SULFAMETHOX-TMP 800-160MG 1 EACH TAB PO SCH (07:47)
[2018-04-28 08:00] VITALS: BP 138/74; PULSE 60; TEMP 98.2
[2018-04-28] MEDS ORDERED: ASPIRIN 81 MG PO SCH (09:00)
[2018-04-28] MEDS ORDERED: CLOPIDOGREL 75 MG TAB PO SCH (09:00)
[2018-04-28] MEDS ORDERED: predniSONE 5 MG TAB PO SCH (09:00)
[2018-04-28] MEDS ORDERED: amLODIPine 5 MG TAB PO SCH (09:00)
--- NOTE | 2018-04-28 09:16 | PN ---
PROGRESS NOTE Mr. Santana is a 78-year-old male who presented with symptoms of chest discomfort, abnormal myocardial perfusion imaging, underwent cardiac catheterization, was found to have critical stenosis involving the proximal LAD, underwent stenting of that vessel. He is doing well this morning, ambulating without difficulty. Denying any chest pain. No dizziness. No palpitation. He continued to be on aspirin 81 mg daily, Lipitor 80 mg daily, Plavix 75 mg daily, metoprolol tartrate 25 mg twice a day. PHYSICAL EXAMINATION: Blood pressure 138/70 with the heart rate in 60s. LUNGS: Clear. HEART: Regular rate and rhythm. S1, S2. No S3. No rub. ABDOMEN: Soft, nontender. EXTREMITIES: No edema. Right radial pulse intact. EKG no acute changes. BUN and creatinine 21 and 1.22. Potassium 5.0. IMPRESSION: 1. Status post stenting of the left anterior descending artery. 2. Hypertension. 3. Hyperlipidemia. RECOMMENDATION: Patient will be discharged home today and followed as an outpatient by Dr. León. MMWAYNE / CHERYLN: [id number] /
== END 2018-04-28 09:30 | disposition home or self-care (01) ==
LOC: CATHCVL 05:53 → 3SCARD 16:23 → CATHCVL 04-28 09:30
PROVIDERS: ATTEND Internal Medicine Interventional Cardiology
DX: I25.10 Atherosclerotic heart disease of native coronary artery without angina pectoris (principal); R94.39 Abnormal result of other cardiovascular function study; E78.5 Hyperlipidemia, unspecified; J44.9 Chronic obstructive pulmonary disease, unspecified; I10 Essential (primary) hypertension; E78.00 Pure hypercholesterolemia, unspecified; M06.9 Rheumatoid arthritis, unspecified; I48.0 Paroxysmal atrial fibrillation; R00.1 Bradycardia, unspecified; Z79.01 Long term (current) use of anticoagulants; Z79.82 Long term (current) use of aspirin; Z79.52 Long term (current) use of systemic steroids; Z79.899 Other long term (current) drug therapy; Z72.0 Tobacco use; Z88.0 Allergy status to penicillin; Z88.8 Allergy status to other drugs, medicaments and biological substances
CPT/HCPCS: 93458; 85347; 80048; C9600; C1769 ×2; C1887; C1894; C1725; C1874; J2250; J2270; J2001; J3010; J1644; J7512; Q9967 ×2